=== PATIENT | female | born 1965 | race Caucasian/White ===

== ENCOUNTER 2017-08-04 23:27 | Inpatient (IN) | payer MEDICAID ==
[2017-08-05] MEDS: SOD CHLORIDE 0.9% 1,000 ML IV ×5 (00:24→22:30)
[2017-08-05] MEDS: morphine 4 MG/ML VIAL IV ×2 (00:24→01:29)
[2017-08-05] MEDS: ONDANSETRON 4 MG INJ IV ×3 (00:24→17:54)
[2017-08-05] MEDS ORDERED: ACETAMINOPHEN 500 MG TAB (00:29)
[2017-08-05 00:31] LABS: ADD MAN DIFF? NO
[2017-08-05] MEDS: ACETAMINOPHEN 500 MG TAB PO (00:32)
[2017-08-05 00:37] LABS: BASOPHILS % 0.4 % (0.0-2.0); EOSINOPHILS # 0.1 10^3/ul (0.0-0.5); HEMATOCRIT 33.8 % (37.0-47.0); HEMOGLOBIN 11.2 g/dl (12.0-16.0); LYMPHOCYTES # 1.5 10^3/ul (0.8-2.9); LYMPHOCYTES % 14.1 % (15.0-51.0); MEAN CORPUSCULAR HEMOGLOBIN 28.7 pg (29.0-33.0); MEAN CORPUSCULAR HGB CONC 33.1 g/dl (32.0-37.0); MEAN CORPUSCULAR VOLUME 86.7 fl (82.0-101.0); MEAN PLATELET VOLUME 9.7 fl (7.4-10.4); MONOCYTE # 0.8 10^3/ul (0.3-0.9); MONOCYTES % 7.3 % (0.0-11.0); NEUTROPHIL # 8.1 10^3/ul (1.6-7.5); NEUTROPHILS % 76.4 % (39.0-77.0); PLATELET COUNT 320 10^3/UL (140-415)
[2017-08-05 00:37] LABS: WHITE BLOOD COUNT 10.6 10^3/ul (4.8-10.8)
[2017-08-05 00:41] LABS: ADD UMIC YES; UR ASCORBIC ACID NEGATIVE (NEGATIVE); UR BACTERIA FEW /HPF (NONE SEEN); UR BILIRUBIN (Dip) NEGATIVE (NEGATIVE); UR BLOOD (Dip) 3+ mg/dL (NEGATIVE); UR CLARITY SLIGHTLY CLOUDY (CLEAR); UR COLOR YELLOW (YELLOW); UR GLUCOSE (Dip) NEGATIVE (NEGATIVE); UR KETONES (Dip) NEGATIVE (NEGATIVE); UR LEUKOCYTE ESTERASE (Dip) 1+ Leu/ul (NEGATIVE); UR NITRITE (Dip) NEGATIVE (NEGATIVE); UR RBC 173 /HPF (0-5); UR SPECIFIC GRAVITY (Dip) 1.018 (1.003-1.030); UR SQUAMOUS EPITHELIAL CELL FEW /HPF (FEW); UR TOTAL PROTEIN (Dip) NEGATIVE (NEGATIVE); UR UROBILINOGEN (Dip) NEGATIVE (NEGATIVE); UR WBC 29 /HPF (0-5)
[2017-08-05 00:58] LABS: ALANINE AMINOTRANSFERASE 29 IU/L (13-69); ALBUMIN 3.9 g/dl (3.3-4.9); ALBUMIN/GLOBULIN RATIO 1.02; ALKALINE PHOSPHATASE 84 IU/L (42-121); ANION GAP 14 (8-16); ASPARTATE AMINO TRANSFERASE 24 IU/L (15-46); BILIRUBIN,INDIRECT 0.1 mg/dl (0-1.1); BILIRUBIN,TOTAL 0.1 mg/dl (0.2-1.3); BLOOD UREA NITROGEN 14 mg/dl (7-20); CARBON DIOXIDE 25 mmol/L (21-31); CHLORIDE 105 mmol/L (97-110); CREATININE 0.67 mg/dl (0.44-1.00); GLUCOSE 118 mg/dl (70-220); LIPASE 63 U/L (23-300); POTASSIUM 3.9 mmol/L (3.5-5.1); SODIUM 140 mmol/L (135-144); TOTAL PROTEIN 7.7 g/dl (6.1-8.1)
[2017-08-05] MEDS: CEFTRIAXONE 1 GM/50 ML (PMX) 50 ML IVPB (02:53)
[2017-08-05 03:07] LABS: LACTIC ACID 1.1 mmol/L (0.5-2.0)
[2017-08-05] MEDS ORDERED: NACL 0.9% 3 ML SYG IV (03:30)
[2017-08-05] MEDS ORDERED: ALPRAZOLAM 0.5 MG TAB PO (03:30)
[2017-08-05] MEDS: morphine 2 MG INJ IV ×2 (04:20→09:56)
[2017-08-05 05:38] LABS: LACTIC ACID 1.6 mmol/L (0.5-2.0)
[2017-08-05 06:15] LABS: LACTIC ACID 1.6 mmol/L (0.5-2.0)
[2017-08-05] MEDS: metroNIDAZOLE 500 MG/NS (PMX) 100 ML IVPB ×3 (06:32→22:24)
[2017-08-05] MEDS: IOHEXOL 300MG/ML 150 ML BTL (09:15)
[2017-08-05] MEDS: SOD CHLORIDE 0.9% 100 ML (09:15)
[2017-08-05] MEDS: LEVOFLOXACIN 750MG/D5W (PMX) 150 ML IVPB (09:54)
[2017-08-05] MEDS: PANTOPRAZOLE 40 MG INJ IV (12:07)
[2017-08-05 13:33] LABS: LACTATE DEHYDROGENASE 366 IU/L (313-618)
[2017-08-05] MEDS ORDERED: morphine LIQ (10 MG/5 ML) CUP PO (14:00)
[2017-08-05 14:04] LABS: CANCER ANTIGEN 125 13.1 U/ml (0.0-35.0)
[2017-08-05 14:15] LABS: ALPHA FETOPROTEIN 1.37 IU/L (0.00-7.21)
[2017-08-05] MEDS: ACETAMINOPHEN 325 MG TAB PO (17:28)
[2017-08-06] MEDS: SOD CHLORIDE 0.9% 1,000 ML IV ×2 (04:12→17:06)
[2017-08-06] MEDS: metroNIDAZOLE 500 MG/NS (PMX) 100 ML IVPB ×2 (05:20→15:30)
[2017-08-06] MEDS: PANTOPRAZOLE 40 MG INJ IV (05:33)
[2017-08-06 05:43] LABS: ADD MAN DIFF? NO
[2017-08-06 05:46] LABS: WHITE BLOOD COUNT 17.2 10^3/ul (4.8-10.8)
[2017-08-06 05:46] LABS: BASOPHILS % 0.2 % (0.0-2.0); EOSINOPHILS % 0.2 % (0.0-7.0); HEMATOCRIT 31.8 % (37.0-47.0); HEMOGLOBIN 10.5 g/dl (12.0-16.0); LYMPHOCYTES # 0.8 10^3/ul (0.8-2.9); LYMPHOCYTES % 4.8 % (15.0-51.0); MEAN CORPUSCULAR VOLUME 87.8 fl (82.0-101.0); MEAN PLATELET VOLUME 9.5 fl (7.4-10.4); MONOCYTE # 0.7 10^3/ul (0.3-0.9); MONOCYTES % 3.8 % (0.0-11.0); NEUTROPHIL # 15.5 10^3/ul (1.6-7.5); NEUTROPHILS % 90.3 % (39.0-77.0); PLATELET COUNT 329 10^3/UL (140-415); RED BLOOD COUNT 3.62 10^6/ul (4.20-5.40); RED CELL DISTRIBUTION WIDTH 13.2 % (11.5-14.5)
[2017-08-06 06:19] LABS: ALANINE AMINOTRANSFERASE 25 IU/L (13-69); ALBUMIN 3.1 g/dl (3.3-4.9); ALBUMIN/GLOBULIN RATIO 0.88; ALKALINE PHOSPHATASE 65 IU/L (42-121); ANION GAP 10 (8-16); ASPARTATE AMINO TRANSFERASE 21 IU/L (15-46); BILIRUBIN,INDIRECT 0.4 mg/dl (0-1.1); BILIRUBIN,TOTAL 0.4 mg/dl (0.2-1.3); BLOOD UREA NITROGEN 9 mg/dl (7-20); CALCIUM 8.2 mg/dl (8.4-10.2); CARBON DIOXIDE 23 mmol/L (21-31); CHLORIDE 110 mmol/L (97-110); CHOL/HDL RATIO 2.5 RATIO; CHOLESTEROL 101 mg/dl (100-200); CREATININE 0.55 mg/dl (0.44-1.00); GLUCOSE 83 mg/dl (70-220); HDL CHOLESTEROL 40 mg/dl (37-92); LDL CHOLESTEROL,CALCULATED 52 mg/dl; POTASSIUM 3.7 mmol/L (3.5-5.1); SODIUM 139 mmol/L (135-144); TOTAL PROTEIN 6.6 g/dl (6.1-8.1); TRIGLYCERIDES 43 mg/dl (0-149)
[2017-08-06 07:49] LABS: HEMOGLOBIN A1C 5.3 % (0-5.9)
[2017-08-06] MEDS: LEVOFLOXACIN 750MG/D5W (PMX) 150 ML IVPB (08:00)
[2017-08-06] MEDS ORDERED: VANCOMYCIN IV PER PHARMACY XX (09:30)
[2017-08-06] MEDS: CEFTRIAXONE 1 GM/50 ML (PMX) 50 ML IVPB (09:40)
[2017-08-06] MEDS: ACETAMINOPHEN 1000MG/100ML IV 100 ML IVPB (10:25)
[2017-08-06] MEDS: VANCOMYCIN 1.5 GM in SOD CHLORIDE 0.9% 250 ML IVPB (12:01)
[2017-08-06 13:26] LABS: ESTRADIOL 47 pg/mL
[2017-08-06 14:40] LABS: HEMOGLOBIN 10.5 g/dl (12.0-16.0)
[2017-08-06] MEDS: ACETAMINOPHEN 325 MG TAB PO (20:08)
[2017-08-06] MEDS ORDERED: DOXYCYCLINE 100 MG TAB PO (21:00)
[2017-08-06] MEDS: VANCOMYCIN 750 MG in SOD CHLORIDE 0.9% 150 ML IVPB (21:40)
[2017-08-07] MEDS: metroNIDAZOLE 500 MG/NS (PMX) 100 ML IVPB ×3 (00:09→15:17)
[2017-08-07] MEDS: VANCOMYCIN 750 MG in SOD CHLORIDE 0.9% 150 ML IVPB ×2 (04:57→13:18)
[2017-08-07] MEDS: SOD CHLORIDE 0.9% 1,000 ML IV ×2 (05:12→18:12)
[2017-08-07 06:18] LABS: ADD MAN DIFF? NO
[2017-08-07 06:25] LABS: WHITE BLOOD COUNT 12.1 10^3/ul (4.8-10.8)
[2017-08-07 06:25] LABS: BASOPHILS % 0.3 % (0.0-2.0); EOSINOPHILS # 0.2 10^3/ul (0.0-0.5); EOSINOPHILS % 1.3 % (0.0-7.0); HEMATOCRIT 28.7 % (37.0-47.0); HEMOGLOBIN 9.8 g/dl (12.0-16.0); LYMPHOCYTES # 1.2 10^3/ul (0.8-2.9); LYMPHOCYTES % 9.6 % (15.0-51.0); MEAN CORPUSCULAR HEMOGLOBIN 29.6 pg (29.0-33.0); MEAN CORPUSCULAR HGB CONC 34.1 g/dl (32.0-37.0); MEAN CORPUSCULAR VOLUME 86.7 fl (82.0-101.0); MEAN PLATELET VOLUME 9.5 fl (7.4-10.4); MONOCYTE # 0.8 10^3/ul (0.3-0.9); MONOCYTES % 6.9 % (0.0-11.0); NEUTROPHIL # 9.8 10^3/ul (1.6-7.5); NEUTROPHILS % 81.3 % (39.0-77.0); PLATELET COUNT 342 10^3/UL (140-415); RED BLOOD COUNT 3.31 10^6/ul (4.20-5.40); RED CELL DISTRIBUTION WIDTH 13.6 % (11.5-14.5)
[2017-08-07] MEDS: PANTOPRAZOLE 40 MG INJ IV (06:29)
[2017-08-07] MEDS: ACETAMINOPHEN 325 MG TAB PO (06:38)
[2017-08-07 07:09] LABS: ANION GAP 7 (8-16); BLOOD UREA NITROGEN 10 mg/dl (7-20); CALCIUM 7.9 mg/dl (8.4-10.2); CARBON DIOXIDE 24 mmol/L (21-31); CHLORIDE 111 mmol/L (97-110); GLUCOSE 99 mg/dl (70-220); POTASSIUM 3.8 mmol/L (3.5-5.1); SODIUM 138 mmol/L (135-144)
[2017-08-07] MEDS: CEFTRIAXONE 1 GM/50 ML (PMX) 50 ML IVPB (08:43)
[2017-08-07] MEDS: DOXYCYCLINE 100 MG TAB PO ×2 (16:37→23:19)
[2017-08-07] MEDS: VANCOMYCIN 500MG/NS (PMX) 100 ML IVPB (17:02)
[2017-08-07] MEDS ORDERED: MAGNESIUM HYDROXIDE 30ML CUP PO (20:30)
[2017-08-07] MEDS: VANCOMYCIN 1.25 GM in SOD CHLORIDE 0.9% 250 ML IVPB (21:02)
[2017-08-07] MEDS: SENNA TAB PO (21:02)
[2017-08-08] MEDS: metroNIDAZOLE 500 MG/NS (PMX) 100 ML IVPB (01:21)
[2017-08-08] MEDS: VANCOMYCIN 1.25 GM in SOD CHLORIDE 0.9% 250 ML IVPB ×3 (05:05→20:24)
[2017-08-08] MEDS: PANTOPRAZOLE 40 MG INJ IV (05:45)
[2017-08-08] MEDS: SOD CHLORIDE 0.9% 1,000 ML IV ×2 (06:12→18:58)
[2017-08-08 06:16] LABS: ADD MAN DIFF? NO
[2017-08-08 06:21] LABS: WHITE BLOOD COUNT 9.2 10^3/ul (4.8-10.8)
[2017-08-08 06:21] LABS: BASOPHILS % 0.3 % (0.0-2.0); EOSINOPHILS # 0.2 10^3/ul (0.0-0.5); HEMATOCRIT 28.5 % (37.0-47.0); HEMOGLOBIN 9.8 g/dl (12.0-16.0); LYMPHOCYTES # 1.4 10^3/ul (0.8-2.9); LYMPHOCYTES % 14.9 % (15.0-51.0); MEAN CORPUSCULAR HEMOGLOBIN 29.4 pg (29.0-33.0); MEAN CORPUSCULAR HGB CONC 34.4 g/dl (32.0-37.0); MEAN CORPUSCULAR VOLUME 85.6 fl (82.0-101.0); MEAN PLATELET VOLUME 9.4 fl (7.4-10.4); MONOCYTE # 0.9 10^3/ul (0.3-0.9); MONOCYTES % 9.5 % (0.0-11.0); NEUTROPHIL # 6.7 10^3/ul (1.6-7.5); NEUTROPHILS % 72.9 % (39.0-77.0); PLATELET COUNT 369 10^3/UL (140-415); RED BLOOD COUNT 3.33 10^6/ul (4.20-5.40); RED CELL DISTRIBUTION WIDTH 13.4 % (11.5-14.5)
[2017-08-08 06:40] LABS: MAGNESIUM 1.9 mg/dl (1.7-2.5)
[2017-08-08 06:40] LABS: PHOSPHORUS 2.8 mg/dl (2.5-4.9)
[2017-08-08 07:05] LABS: ANION GAP 9 (8-16); BLOOD UREA NITROGEN 7 mg/dl (7-20); CALCIUM 7.7 mg/dl (8.4-10.2); CARBON DIOXIDE 26 mmol/L (21-31); CHLORIDE 110 mmol/L (97-110); CREATININE 0.55 mg/dl (0.44-1.00); GLUCOSE 95 mg/dl (70-220); POTASSIUM 3.5 mmol/L (3.5-5.1); SODIUM 141 mmol/L (135-144)
[2017-08-08] MEDS: SENNA TAB PO ×2 (08:19→20:24)
[2017-08-08] MEDS: DOXYCYCLINE 100 MG TAB PO ×2 (08:30→20:24)
[2017-08-08] MEDS: CEFTRIAXONE 1 GM/50 ML (PMX) 50 ML IVPB (10:17)
[2017-08-08] MEDS: metroNIDAZOLE 500 MG TAB PO ×2 (14:27→22:23)
[2017-08-09 05:37] LABS: ADD MAN DIFF? NO
[2017-08-09 05:43] LABS: WHITE BLOOD COUNT 6.3 10^3/ul (4.8-10.8)
[2017-08-09 05:43] LABS: BASOPHILS % 0.6 % (0.0-2.0); EOSINOPHILS # 0.2 10^3/ul (0.0-0.5); EOSINOPHILS % 3.5 % (0.0-7.0); HEMATOCRIT 27.4 % (37.0-47.0); HEMOGLOBIN 9.1 g/dl (12.0-16.0); LYMPHOCYTES # 1.4 10^3/ul (0.8-2.9); LYMPHOCYTES % 22.7 % (15.0-51.0); MEAN CORPUSCULAR HEMOGLOBIN 28.6 pg (29.0-33.0); MEAN CORPUSCULAR HGB CONC 33.2 g/dl (32.0-37.0); MEAN CORPUSCULAR VOLUME 86.2 fl (82.0-101.0); MEAN PLATELET VOLUME 9.1 fl (7.4-10.4); MONOCYTE # 0.8 10^3/ul (0.3-0.9); MONOCYTES % 12.5 % (0.0-11.0); NEUTROPHIL # 3.8 10^3/ul (1.6-7.5); NEUTROPHILS % 60.2 % (39.0-77.0); PLATELET COUNT 370 10^3/UL (140-415); RED BLOOD COUNT 3.18 10^6/ul (4.20-5.40); RED CELL DISTRIBUTION WIDTH 13.3 % (11.5-14.5)
[2017-08-09] MEDS: metroNIDAZOLE 500 MG TAB PO ×3 (05:55→22:17)
[2017-08-09] MEDS: PANTOPRAZOLE 40 MG INJ IV (05:55)
[2017-08-09 06:10] LABS: ANION GAP 11 (8-16); BLOOD UREA NITROGEN 8 mg/dl (7-20); CALCIUM 8.2 mg/dl (8.4-10.2); CARBON DIOXIDE 28 mmol/L (21-31); CHLORIDE 106 mmol/L (97-110); CREATININE 0.52 mg/dl (0.44-1.00); GLUCOSE 101 mg/dl (70-220); MAGNESIUM 1.8 mg/dl (1.7-2.5); PHOSPHORUS 3.5 mg/dl (2.5-4.9); POTASSIUM 3.3 mmol/L (3.5-5.1); SODIUM 142 mmol/L (135-144)
[2017-08-09] MEDS: SOD CHLORIDE 0.9% 1,000 ML IV ×2 (07:12→10:51)
[2017-08-09] MEDS: LEVOFLOXACIN 500 MG TAB PO (08:11)
[2017-08-09] MEDS: SENNA TAB PO ×2 (08:11→20:18)
[2017-08-09] MEDS: POTASSIUM CHLORIDE 20 MEQ POWDER FOR ORAL SOLN PO (09:50)
[2017-08-09 11:56] LABS: NIL 0.05 IU/mL; QUANTIFERON(R)-TB GOLD NEGATIVE (NEGATIVE)
[2017-08-09] MEDS: LORAZEPAM 1 MG TAB PO (22:19)
[2017-08-10] MEDS: SOD CHLORIDE 0.9% 1,000 ML IV ×3 (00:07→14:06)
[2017-08-10] MEDS: PANTOPRAZOLE 40 MG INJ IV (05:35)
[2017-08-10] MEDS: metroNIDAZOLE 500 MG TAB PO ×3 (05:35→21:37)
[2017-08-10] MEDS: LEVOFLOXACIN 500 MG TAB PO (05:35)
[2017-08-10 06:05] LABS: ADD MAN DIFF? NO
[2017-08-10 06:23] LABS: BASOPHILS % 0.5 % (0.0-2.0); EOSINOPHILS # 0.2 10^3/ul (0.0-0.5); EOSINOPHILS % 2.7 % (0.0-7.0); HEMATOCRIT 29.2 % (37.0-47.0); HEMOGLOBIN 9.7 g/dl (12.0-16.0); LYMPHOCYTES # 1.6 10^3/ul (0.8-2.9); LYMPHOCYTES % 26.3 % (15.0-51.0); MEAN CORPUSCULAR HEMOGLOBIN 28.5 pg (29.0-33.0); MEAN CORPUSCULAR HGB CONC 33.2 g/dl (32.0-37.0); MEAN CORPUSCULAR VOLUME 85.9 fl (82.0-101.0); MONOCYTE # 0.6 10^3/ul (0.3-0.9); MONOCYTES % 10.7 % (0.0-11.0); NEUTROPHIL # 3.6 10^3/ul (1.6-7.5); NEUTROPHILS % 59.1 % (39.0-77.0); PLATELET COUNT 448 10^3/UL (140-415); RED CELL DISTRIBUTION WIDTH 13.4 % (11.5-14.5)
[2017-08-10 06:45] LABS: ANION GAP 15 (8-16); BLOOD UREA NITROGEN 8 mg/dl (7-20); CALCIUM 8.5 mg/dl (8.4-10.2); CARBON DIOXIDE 26 mmol/L (21-31); CHLORIDE 105 mmol/L (97-110); CREATININE 0.52 mg/dl (0.44-1.00); GLUCOSE 95 mg/dl (70-220); MAGNESIUM 1.9 mg/dl (1.7-2.5); PHOSPHORUS 3.8 mg/dl (2.5-4.9); POTASSIUM 3.7 mmol/L (3.5-5.1); SODIUM 142 mmol/L (135-144)
[2017-08-10] MEDS: SENNA TAB PO ×2 (09:00→21:37)
[2017-08-11] MEDS: SOD CHLORIDE 0.9% 1,000 ML IV (01:31)
[2017-08-11] MEDS: metroNIDAZOLE 500 MG TAB PO (05:45)
[2017-08-11] MEDS: LEVOFLOXACIN 500 MG TAB PO (05:45)
[2017-08-11] MEDS: PANTOPRAZOLE 40 MG INJ IV (05:45)
[2017-08-11 06:00] LABS: ADD MAN DIFF? NO
[2017-08-11 06:10] LABS: BASOPHILS % 0.7 % (0.0-2.0); EOSINOPHILS # 0.2 10^3/ul (0.0-0.5); EOSINOPHILS % 2.8 % (0.0-7.0); HEMATOCRIT 27.8 % (37.0-47.0); HEMOGLOBIN 9.3 g/dl (12.0-16.0); LYMPHOCYTES # 1.9 10^3/ul (0.8-2.9); LYMPHOCYTES % 33.7 % (15.0-51.0); MEAN CORPUSCULAR HEMOGLOBIN 28.7 pg (29.0-33.0); MEAN CORPUSCULAR HGB CONC 33.5 g/dl (32.0-37.0); MEAN CORPUSCULAR VOLUME 85.8 fl (82.0-101.0); MEAN PLATELET VOLUME 9.2 fl (7.4-10.4); MONOCYTE # 0.6 10^3/ul (0.3-0.9); MONOCYTES % 10.6 % (0.0-11.0); NEUTROPHIL # 2.9 10^3/ul (1.6-7.5); NEUTROPHILS % 51.5 % (39.0-77.0); PLATELET COUNT 448 10^3/UL (140-415); RED BLOOD COUNT 3.24 10^6/ul (4.20-5.40); RED CELL DISTRIBUTION WIDTH 13.5 % (11.5-14.5)
[2017-08-11 06:10] LABS: WHITE BLOOD COUNT 5.7 10^3/ul (4.8-10.8)
[2017-08-11 06:30] LABS: ANION GAP 15 (8-16); BLOOD UREA NITROGEN 9 mg/dl (7-20); CALCIUM 8.4 mg/dl (8.4-10.2); CARBON DIOXIDE 26 mmol/L (21-31); CHLORIDE 105 mmol/L (97-110); CREATININE 0.49 mg/dl (0.44-1.00); GLUCOSE 89 mg/dl (70-220); MAGNESIUM 1.9 mg/dl (1.7-2.5); PHOSPHORUS 3.6 mg/dl (2.5-4.9); POTASSIUM 3.9 mmol/L (3.5-5.1); SODIUM 142 mmol/L (135-144)
[2017-08-11] MEDS: SENNA TAB PO (08:52)
== END 2017-08-11 11:40 | disposition home or self-care (01) | DRG 872 ==
LOC: E/R 23:27 → MS2 08-05 02:45
DX: A41.9 Sepsis, unspecified organism (principal); N39.0 Urinary tract infection, site not specified; N73.0 Acute parametritis and pelvic cellulitis; K52.9 Noninfective gastroenteritis and colitis, unspecified; D64.9 Anemia, unspecified; N92.6 Irregular menstruation, unspecified; R19.09 Other intra-abdominal and pelvic swelling, mass and lump; R10.2 Pelvic and perineal pain; F41.9 Anxiety disorder, unspecified; B95.2 Enterococcus as the cause of diseases classified elsewhere
CPT/HCPCS: 36415; 72196; 74176; 74177; 76830; 76856; 80048; 80053; 80061; 80202; 81001; 81025; 82105; 82378; 82670; 83036; 83605; 83615; 83690; 83735; 84100; 84443; 84702; 84703; 85018; 85025; 86301; 86304; 86480; 87040; 87086; 87591; 96374; 96375; 96376; 99285-25

== ENCOUNTER 2017-11-08 16:52 | Emergency (ER) | payer MEDICAID ==
[2017-11-08 19:24] LABS: ADD UMIC NO; UR AMORPHOUS CRYSTAL FEW /HPF (NONE SEEN); UR ASCORBIC ACID NEGATIVE (NEGATIVE); UR BILIRUBIN (Dip) NEGATIVE (NEGATIVE); UR BLOOD (Dip) NEGATIVE (NEGATIVE); UR CLARITY SLIGHTLY CLOUDY (CLEAR); UR COLOR STRAW (YELLOW); UR GLUCOSE (Dip) NEGATIVE (NEGATIVE); UR KETONES (Dip) NEGATIVE (NEGATIVE); UR LEUKOCYTE ESTERASE (Dip) NEGATIVE Leu/ul (NEGATIVE); UR NITRITE (Dip) NEGATIVE (NEGATIVE); UR RBC 1 /HPF (0-5); UR SPECIFIC GRAVITY (Dip) 1.012 (1.003-1.030); UR TOTAL PROTEIN (Dip) NEGATIVE (NEGATIVE); UR UROBILINOGEN (Dip) NEGATIVE (NEGATIVE); UR WBC 0 /HPF (0-5)
== END 2017-11-08 20:08 | disposition home or self-care (01) ==
LOC: FTE 16:52
DX: R10.2 Pelvic and perineal pain (principal)
CPT/HCPCS: 76830; 76856; 81001; 81003; 81025; 99284-25

== ENCOUNTER 2018-07-12 12:04 | Emergency (ER) | payer MEDICAID | END 2018-07-12 13:43 | disposition home or self-care (01) | LOC: FTE 12:04 | DX: S80.861A Insect bite (nonvenomous), right lower leg, initial encounter (principal); W57.XXXA Bitten or stung by nonvenomous insect and other nonvenomous arthropods, initial encounter; Y92.9 Unspecified place or not applicable | CPT/HCPCS: 99283; Z7502 ==

== ENCOUNTER 2018-09-05 15:22 | Emergency (ER) | payer SELFPAY, OTHER, MEDICAID ==
[2018-09-05] MEDS: LORAZEPAM 0.5 MG TAB PO (18:12)
[2018-09-05 18:19] LABS: ADD MAN DIFF? NO
[2018-09-05 18:23] LABS: WHITE BLOOD COUNT 6.9 10^3/ul (4.8-10.8)
[2018-09-05 18:23] LABS: BASOPHIL # 0.1 10^3/ul (0.0-0.1); BASOPHILS % 0.7 % (0.0-2.0); EOSINOPHILS % 0.4 % (0.0-7.0); HEMATOCRIT 43.7 % (37.0-47.0); HEMOGLOBIN 14.1 g/dl (12.0-16.0); LYMPHOCYTES # 2.2 10^3/ul (0.8-2.9); LYMPHOCYTES % 31.7 % (15.0-51.0); MEAN CORPUSCULAR HEMOGLOBIN 28.1 pg (29.0-33.0); MEAN CORPUSCULAR HGB CONC 32.3 g/dl (32.0-37.0); MEAN CORPUSCULAR VOLUME 87.2 fl (82.0-101.0); MEAN PLATELET VOLUME 10.6 fl (7.4-10.4); MONOCYTE # 0.5 10^3/ul (0.3-0.9); NEUTROPHIL # 4.1 10^3/ul (1.6-7.5); NEUTROPHILS % 60.1 % (39.0-77.0); PLATELET COUNT 249 10^3/UL (140-415); RED BLOOD COUNT 5.01 10^6/ul (4.20-5.40); RED CELL DISTRIBUTION WIDTH 12.9 % (11.5-14.5)
[2018-09-05 18:29] LABS: ADD UMIC YES; UR ASCORBIC ACID NEGATIVE (NEGATIVE); UR BILIRUBIN (Dip) NEGATIVE (NEGATIVE); UR BLOOD (Dip) 1+ mg/dL (NEGATIVE); UR CLARITY SLIGHTLY CLOUDY (CLEAR); UR COLOR YELLOW (YELLOW); UR GLUCOSE (Dip) NEGATIVE (NEGATIVE); UR KETONES (Dip) NEGATIVE (NEGATIVE); UR LEUKOCYTE ESTERASE (Dip) 2+ Leu/ul (NEGATIVE); UR NITRITE (Dip) NEGATIVE (NEGATIVE); UR RBC 3 /HPF (0-5); UR SQUAMOUS EPITHELIAL CELL FEW /HPF (FEW); UR TOTAL PROTEIN (Dip) NEGATIVE (NEGATIVE); UR UROBILINOGEN (Dip) NEGATIVE (NEGATIVE); UR WBC 9 /HPF (0-5)
[2018-09-05 18:45] LABS: ANION GAP 10 (5-13); BLOOD UREA NITROGEN 14 mg/dl (7-20); CALCIUM 10.8 mg/dl (8.4-10.2); CARBON DIOXIDE 30 mmol/L (21-31); CHLORIDE 103 mmol/L (97-110); CREATININE 0.61 mg/dl (0.44-1.00); Estimated GFR > 60 mL/min (>60); GLUCOSE 103 mg/dl (70-220); POTASSIUM 4.1 mmol/L (3.5-5.1); SODIUM 143 mmol/L (135-144)
== END 2018-09-05 19:29 | disposition home or self-care (01) ==
LOC: FTE 15:22
DX: I10 Essential (primary) hypertension (principal); N39.0 Urinary tract infection, site not specified
CPT/HCPCS: 80048; 81001; 84703; 85025; 93005; 99283-25

== ENCOUNTER 2018-10-22 18:19 | Emergency (ER) | payer SELFPAY | END 2018-10-22 20:00 | disposition home or self-care (01) | LOC: FTE 18:19 | DX: F41.9 Anxiety disorder, unspecified (principal); I10 Essential (primary) hypertension | CPT/HCPCS: 93005; 99283-25 ==

== ENCOUNTER → 2018-10-25 | Emergency (ER) | payer SELFPAY ==
[2018-10-25] MEDS: LORAZEPAM 0.5 MG TAB PO (11:23)
== END | disposition home or self-care (01) ==
LOC: FTE 10:36
DX: F41.9 Anxiety disorder, unspecified (principal); I10 Essential (primary) hypertension
CPT/HCPCS: 93005; 99283

== ENCOUNTER 2018-11-09 15:49 | Emergency (ER) | payer MEDICAID ==
[2018-11-09 19:05] LABS: ADD UMIC YES; UR AMORPHOUS CRYSTAL FEW /HPF (NONE SEEN); UR ASCORBIC ACID NEGATIVE (NEGATIVE); UR BILIRUBIN (Dip) NEGATIVE (NEGATIVE); UR BLOOD (Dip) 2+ mg/dL (NEGATIVE); UR BUDDING YEAST MODERATE /HPF (NONE SEEN); UR CLARITY TURBID (CLEAR); UR COLOR YELLOW (YELLOW); UR GLUCOSE (Dip) NEGATIVE (NEGATIVE); UR KETONES (Dip) NEGATIVE (NEGATIVE); UR LEUKOCYTE ESTERASE (Dip) 3+ Leu/ul (NEGATIVE); UR NITRITE (Dip) NEGATIVE (NEGATIVE); UR RBC 3 /HPF (0-5); UR SPECIFIC GRAVITY (Dip) 1.016 (1.003-1.030); UR SQUAMOUS EPITHELIAL CELL MODERATE /HPF (FEW); UR TOTAL PROTEIN (Dip) NEGATIVE (NEGATIVE); UR UROBILINOGEN (Dip) NEGATIVE (NEGATIVE); UR WBC 12 /HPF (0-5)
== END 2018-11-09 19:33 | disposition home or self-care (01) ==
LOC: E/R 15:49
DX: N30.00 Acute cystitis without hematuria (principal); R10.2 Pelvic and perineal pain
CPT/HCPCS: 76830; 76856; 81001; 81025; 99284-25